=== PATIENT | male | born 1990 | race Two or more races ===

== ENCOUNTER 2025-01-31 23:47 | Emergency (ER) | payer BC ==
[~2025-01-31] VITALS: Ht 170.2 cm; Wt 66.8 kg
[2025-02-01] VITALS: BP 145/65
--- NOTE | 2025-02-01 00:42 | Physician Documentation ---
History of Present Illness ~ Chief Complaint: Bite-animal Stated Complaint: ANIMAL BITE Time Seen by MD: 00:42 HPI Patient presents to the emergency room with a bite on his right middle finger on the pad. He has a puppy and he went down to play with the puppy toe a and a pop he is tooth went into his finger. He had not believe that has a tooth in there and is declining x-ray. Requesting tetanus Medication Reconciliation Allergies: Coded Allergies: No Known Allergies (Unverified , 01/31/25) Review of Systems ROS All review of systems negative except as per HPI Physical Exam Vital Signs: Temperature: 97.6, Source: Temporal, Heart Rate: 78, Respiratory Rate: 15, BP: 145/65, Pulse Oximetry: 100, Weight: 66.750 Physical Exam General: Patient is awake, alert, oriented x4 in no acute distress and well appearing.~ Head: Normocephalic and atraumatic. Eyes: Conjunctival normal. EOMI. PERRL. ENT: Mucous membranes moist. Neck: Supple, trachea is midline. Chest: Clear to auscultation bilaterally without rales, rhonchi, or wheezes. There is no accessory muscle use or retractions. Cardiac: RRR without murmurs, gallops, or rubs. Extremity: Puncture ania to pad of patient's right middle finger with no palpable foreign body Progress Results/Orders Results/Orders Vital Signs 02/01/25 00:00 Temp 97.6 Pulse 78 Resp 15 B/P (MAP) 145/65 Pulse Ox 100 Medical Decision Making Findings Patient presents to the emergency room with a puncture wound to his finger. Differentials include but are not limited to animal bite, osteomyelitis, foreign body in tooth. Patient is declining x-ray. We will get his tetanus up-to-date and begin antibiotics. Departure Disposition: HOME / SELF CARE / HOMELESS Impression: Primary Impression: Dog bite Condition: Stable Discharge Instructions: Animal Bite, Adult Referrals: NO PRIMARY CARE PROVIDER (PCP) Prescriptions Amox Tr/Potassium Clavulanate (Augmentin 500-125 Tablet) 1 Each Tablet 1 TAB PO Q12H for 10 Days, #20 TAB Prov: ELLIS BIGGS MD 02/01/25 Education Educated: Patient Educated regarding: diagnosis, treatment, need for follow up Signature Scribe Signature: No scribe Attestation: The note accurately reflects work and decisions made by me.Ellis Biggs MD 02/01/25 00:48 ELLIS BIGGS MD Feb 01, 2025 00:42
[2025-02-01] MEDS ORDERED: AMOX-115 PO (00:48)
[2025-02-01] MEDS: amox tr/potassium clavulanate 875/125mg TAB PO ONE (01:14)
[2025-02-01] MEDS: TETanus/Pertussis (Acell)/Diphther VAC/PF (Tdap-Adult) 0.5ml syringe IMVAC ONE (01:17)
[2025-02-01] MEDS: bacitracin 15gm ointment TP ONE (01:19)
[2025-02-01 01:28] VITALS: PULSE 62; RESP 12; TEMP 97.6; O2SAT 100
== END 2025-02-01 01:34 | disposition home or self-care (01) ==
LOC: ER 23:48
DX: S61.232A Puncture wound without foreign body of right middle finger without damage to nail, initial encounter (principal); W54.0XXA Bitten by dog, initial encounter; Y93.89 Activity, other specified; Y92.89 Other specified places as the place of occurrence of the external cause; Y99.8 Other external cause status
CPT/HCPCS: 90471; 90715; 99283